=== PATIENT | female | born 1970 | race Caucasian/White ===

== ENCOUNTER 2017-01-06 18:27 | Emergency (ER) | payer BC ==
[~2017-01-06] VITALS: Ht 152.4 cm; Wt 71.2 kg
[~2017-01-06 18:27] MED LIST: BUPR-79 PO; LORA-741 PO
[2017-01-06 18:38] VITALS: TEMP 36.9; Ht 152.4 cm; Wt 71.2 kg
[2017-01-06] MEDS ORDERED: SODIUM CHLORIDE 0.9% 1000ML 1,000 ML IV STA (19:00)
--- NOTE | 2017-01-06 19:21 | DIAGNOSTIC IMAGING REPORT ---
SINGLE VIEW CHEST CLINICAL HISTORY: Change in mental status. Weakness. FINDINGS: An AP, portable, upright chest radiograph is compared to study dated 03/28/2016. The cardiomediastinal silhouette is unremarkable. The lungs and pleural spaces are clear. No pneumothorax is seen. The skeletal structures appear osteopenic. The bony thorax is grossly intact. Cholecystectomy clips are identified in the right upper quadrant. IMPRESSION: No active disease in the chest. Electronically signed by: Albert Coreas M.D. 01/06/2017 7:19 PM Dictated Date/Time: 01/06/2017 7:19 PM
[2017-01-06 19:28] VITALS: O2SAT 96
[2017-01-06 19:41] LABS: BASO % 0.2 %; BASO ABS # 0.02 K/uL (0-0.2); COMPLETE YES; EOS % 1.3 %; HEMATOCRIT 40.8 % (37-47); IG% 0.3 %; LYMPH % 20.3 %; LYMPH ABS # 2.26 K/uL (1.2-3.4); MEAN CELL VOLUME 91.9 fL (80-100); MEAN CORPUSCULAR HEMOGLOBIN 30.9 pg (25-34); MEAN CORPUSCULAR HGB CONC 33.6 g/dl (32-36); MEAN PLATELET VOLUME 8.7 fL (7.4-10.4); MONO % 6.5 %; NEUT % 71.4 %; PLATELET COUNT 302 K/uL (130-400); RED BLOOD COUNT 4.44 M/uL (4.2-5.4); WHITE BLOOD COUNT 11.12 K/uL (4.8-10.8)
[2017-01-06] MEDS ORDERED: FLUO20CA36 PO (19:45)
[2017-01-06 19:54] LABS: INR 0.9 (0.9-1.1); PROTHROMBIN TIME (PATIENT) 10.1 SECONDS (9.0-12.0)
[2017-01-06 20:05] LABS: ALT/SGPT 27 U/L (12-78); AST/SGOT 19 U/L (15-37); BLOOD UREA NITROGEN 12 mg/dl (7-18); BUN/CREATININE RATIO 14.8 (10-20); CALCIUM 8.7 mg/dl (8.5-10.1); CARBON DIOXIDE 30 mmol/L (21-32); CHLORIDE 107 mmol/L (98-107); CREATININE 0.84 mg/dl (0.60-1.20); GLUCOSE 94 mg/dl (70-99); MAGNESIUM 2.4 mg/dl (1.8-2.4); POTASSIUM 3.6 mmol/L (3.5-5.1); SODIUM 142 mmol/L (136-145)
[2017-01-06 20:15] LABS: ALKALINE PHOSPHATASE 76 U/L (45-117); PHOSPHORUS 2.5 mg/dl (2.5-4.9)
[2017-01-06] MEDS ORDERED: LORAZEPAM 1 MG TAB SL STA (20:36)
[2017-01-06 20:47] LABS: URINE APPEARANCE CLEAR (CLEAR); URINE BILIRUBIN NEG (NEG); URINE COLOR YELLOW; URINE NITRITE NEG (NEG); URINE PH 6.5 (4.5-7.5); URINE SPECIFIC GRAVITY 1.023 (1.000-1.030); UROBILINOGEN NEG (NEG)
[2017-01-06 20:48] LABS: MANUAL MICROSCOPIC REQUIRED? NO; REVIEW REQ? NO
[2017-01-06 21:12] LABS: BENZODIAZEPINE, URINE NEG (NEG); COCAINE,URINE NEG (NEG); PHENCYCLIDINE, URINE NEG (NEG)
--- NOTE | 2017-01-06 21:28 | DIAGNOSTIC IMAGING REPORT ---
CERVICAL SPINE 5 VIEWS CLINICAL HISTORY: Cervicalgia. No history of trauma. FINDINGS: AP, lateral, bilateral oblique, and odontoid views of the cervical spine are correlated with CT scan of the neck dated 07/28/2014. The skeletal structures are well mineralized. There is no radiographic evidence of fracture or subluxation. The odontoid process and lateral masses appear intact on the open mouth view. The spinolaminar line is preserved. Vertebral body height and alignment are maintained. There is straightening of cervical lordosis with mild reversal centered at C4-C5. Anterior osteophytes are seen from C5 to C7. The spinous processes appear intact. Mild degenerative disc space narrowing seen at C5-C6 and C6-C7. The remaining intervertebral disc spaces are normal. Small posterior discussed by complex is at C5-C6 and C6-C7 may contribute to mild acquired compromise of the central canal. Mild neural frontal stenosis is suggested bilaterally at C5-C6 and C6-C7 on the oblique views. Mild multilevel facet arthropathy is observed. The prevertebral soft tissues are within normal limits. Visualized apical lung parenchyma appears clear. IMPRESSION: 1. No acute bony abnormality is identified. 2. Mild spondylotic change as above, greatest at C5-C6 and C6-C7. See discussion. Electronically signed by: Albert Coreas M.D. 01/06/2017 9:27 PM Dictated Date/Time: 01/06/2017 9:25 PM
[2017-01-06 21:55] VITALS: BP 129/84; PULSE 75; O2SAT 97
--- NOTE | 2017-01-06 21:57 | EMERGENCY ROOM VISIT NOTE ---
History First contact with patient: 18:44 Chief Complaint: DIZZY Stated Complaint: DIZZY, NAUSEA Nursing Triage Summary: Pt reports for several days she has "not been feeling right in the head." Pt reports nausea, dizziness, lightheaded at times. Pt reports some neck pain in left side of head and yesterday having pain under left breast. C/o feeling tired all the time. History of Present Illness The patient is a 46 year old female who presents to the Emergency Room with multiple complaints, including but not limited to headache, neck discomfort, dizziness, shakiness, fatigue, lightheadedness, left ear pain and anxiety. The patient reports that she has had the symptoms for the past several weeks. She has an appointment on Wednesday to see her PCP for recent neck pain and headache. She denies any other recent sinus congestion, runny nose, sore throat or cough. The patient reports that her symptoms have been intermittent. She denies any chest pain, shortness of breath, nausea, vomiting, abdominal pain, diarrhea or urinary symptoms. Her biggest complaint at this time is left ear pain. She denies any tinnitus or drainage from the ear. She rates her discomfort a 4 out of 10. Review of Systems HEENT: Denies spinning dizziness, visual problems, hearing loss or tinnitus. Denies difficulty swallowing or oral lesions. PULMONARY: Denies cough, shortness of breath, sputum production or hemoptysis. CARDIOVASCULAR: Denies chest pain, palpitations, dyspnea on exertion, orthopnea or peripheral edema. GASTROINTESTINAL: Denies diarrhea, constipation, nausea, vomiting, or abdominal pain. GENITOURINARY: Denies dysuria, frequency, urgency or nocturia. NEUROLOGIC: Denies history of epilepsy, CVA, TIA or chronic headaches. MUSCULOSKELETAL: Denies history of joint tenderness/swelling. SKIN: Denies rashes or lesions. PSYCHIATRIC: History of anxiety. ENDOCRINE: Denies history of diabetes or thyroid disorders. Past Medical/Surgical History Medical Problems: (1) Cholelithiasis Nos (2) Depressive Disorder Nec (3) Excessive Menstruation (4) Mixed Hyperlipidemia (5) Tobacco Use Disorder Family History Unremarkable Social History Smoking Status: Current Every Day Smoker Alcohol Use: occasionally Drug Use: none Marital Status: single Occupation Status: employed Current/Historical Medications Scheduled Bupropion (Wellbutrin Sr), 150 MG PO BID Fluoxetine HCl (Fluoxetine HCl), 20 MG PO SS Lorazepam (Ativan), 0.5 MG PO DAILY Allergies Coded Allergies: Penicillins (Verified Allergy, Mild, 03/28/16) Physical Exam Vital Signs Date Time Temp Pulse Resp B/P Pulse Ox O2 Delivery O2 Flow Rate FiO2 01/06/17 20:37 76 20 131/81 95 Room Air 01/06/17 19:34 68 19 127/75 99 Room Air 80 127/86 85 144/80 01/06/17 19:28 96 Room Air 01/06/17 18:40 78 01/06/17 18:38 36.9 79 18 131/83 97 Room Air Physical Exam CONSTITUTIONAL: Healthy and well nourished. Alert and oriented X 3. Patient does not appear in any acute distress. PSYCHIATRIC: Mildly anxious with positive affect. HEENT: Normocephalic, atraumatic. Pupils equal, round and reactive. Bilateral ears are normal on exam with no left TM erythema, air-fluid levels or TM perforation. Nares are also clear. No scleral icterus or conjunctival injection/pallor. NECK: Full active range of motion without discomfort. No JVD or carotid bruits on auscultation. No nuchal rigidity. RESPIRATORY: Clear to auscultation bilaterally with no wheezing, crackles, rhonchi or stridor. CARDIOVASCULAR: Regular rate and rhythm with no murmurs, rubs or gallops. GASTROINTESTINAL: Bowel sounds present in all quadrants. Soft and nontender to palpation. MUSCULOSKELETAL: Full range of motion of all joints without discomfort. INTEGUMENTARY: No rash or other significant dermatologic conditions noted. HEMATOLOGIC: No ecchymosis or petechiae. NEUROLOGIC: Cranial nerves II-XII grossly intact. No focal neurologic deficits noted. No ataxia with ambulation. Negative pronator drift. Medical Decision & Procedures ER Provider Diagnostic Interpretation: My interpretation of an ECG shows a normal sinus rhythm of [address] elevation or other conduction abnormalities. T-wave inversion is noted in lead I. My interpretation of a portable chest x-ray does not show any consolidations, pneumothorax or cardiac prominence. Radiologist report is as follows: SINGLE VIEW CHEST CLINICAL HISTORY: Change in mental status. Weakness. FINDINGS: An AP, portable, upright chest radiograph is compared to study dated 03/28/2016. The cardiomediastinal silhouette is unremarkable. The lungs and pleural spaces are clear. No pneumothorax is seen. The skeletal structures appear osteopenic. The bony thorax is grossly intact. Cholecystectomy clips are identified in the right upper quadrant. IMPRESSION: No active disease in the chest. My interpretation of cervical spine x-rays shows spondylolisthetic changes of the lower cervical spine. Radiologist report is as follows: CERVICAL SPINE 5 VIEWS CLINICAL HISTORY: Cervicalgia. No history of trauma. FINDINGS: AP, lateral, bilateral oblique, and odontoid views of the cervical spine are correlated with CT scan of the neck dated 07/28/2014. The skeletal structures are well mineralized. There is no radiographic evidence of fracture or subluxation. The odontoid process and lateral masses appear intact on the open mouth view. The spinolaminar line is preserved. Vertebral body height and alignment are maintained. There is straightening of cervical lordosis with mild reversal centered at C4-C5. Anterior osteophytes are seen from C5 to C7. The spinous processes appear intact. Mild degenerative disc space narrowing seen at C5-C6 and C6-C7. The remaining intervertebral disc spaces are normal. Small posterior discussed by complex is at C5-C6 and C6-C7 may contribute to mild acquired compromise of the central canal. Mild neural frontal stenosis is suggested bilaterally at C5-C6 and C6-C7 on the oblique views. Mild multilevel facet arthropathy is observed. The prevertebral soft tissues are within normal limits. Visualized apical lung parenchyma appears clear. IMPRESSION: 1. No acute bony abnormality is identified. 2. Mild spondylotic change as above, greatest at C5-C6 and C6-C7. See discussion. Laboratory Results 01/06/17 19:30 Red Blood Count 4.44, Mean Corpuscular Volume 91.9, Mean Corpuscular Hemoglobin 30.9, Mean Corpuscular Hemoglobin Concent 33.6, Mean Platelet Volume 8.7, Neutrophils (%) (Auto) 71.4, Lymphocytes (%) (Auto) 20.3, Monocytes (%) (Auto) 6.5, Eosinophils (%) (Auto) 1.3, Basophils (%) (Auto) 0.2, Neutrophils # (Auto) 7.94, Lymphocytes # (Auto) 2.26, Monocytes # (Auto) 0.72, Eosinophils # (Auto) 0.15, Basophils # (Auto) 0.02 01/06/17 19:30 Test 01/06/17 19:30 01/06/17 20:35 White Blood Count 11.12 K/uL (4.8-10.8) Red Blood Count 4.44 M/uL (4.2-5.4) Hemoglobin 13.7 g/dL (12.0-16.0) Hematocrit 40.8 % (37-47) Mean Corpuscular Volume 91.9 fL (80-100) Mean Corpuscular Hemoglobin 30.9 pg (25-34) Mean Corpuscular Hemoglobin Concent 33.6 g/dl (32-36) Platelet Count 302 K/uL (130-400) Mean Platelet Volume 8.7 fL (7.4-10.4) Neutrophils (%) (Auto) 71.4 % Lymphocytes (%) (Auto) 20.3 % Monocytes (%) (Auto) 6.5 % Eosinophils (%) (Auto) 1.3 % Basophils (%) (Auto) 0.2 % Neutrophils # (Auto) 7.94 K/uL (1.4-6.5) Lymphocytes # (Auto) 2.26 K/uL (1.2-3.4) Monocytes # (Auto) 0.72 K/uL (0.11-0.59) Eosinophils # (Auto) 0.15 K/uL (0-0.5) Basophils # (Auto) 0.02 K/uL (0-0.2) RDW Standard Deviation 43.0 fL (36.4-46.3) RDW Coefficient of Variation 12.7 % (11.5-14.5) Immature Granulocyte % (Auto) 0.3 % Immature Granulocyte # (Auto) 0.03 K/uL (0.00-0.02) Prothrombin Time 10.1 SECONDS (9.0-12.0) Prothromb Time International Ratio 0.9 (0.9-1.1) Activated Partial Thromboplast Time 26.4 SECONDS (21.0-31.0) Partial Thromboplastin Ratio 1.0 D-Dimer 280 ug/L FEU (0-500) Anion Gap 5.0 mmol/L (3-11) Est Creatinine Clear Calc Drug Dose 73.7 ml/min Estimated GFR () 96.6 Estimated GFR (Non- 83.3 BUN/Creatinine Ratio 14.8 (10-20) Calcium Level 8.7 mg/dl (8.5-10.1) Phosphorus Level 2.5 mg/dl (2.5-4.9) Magnesium Level 2.4 mg/dl (1.8-2.4) Total Bilirubin 0.1 mg/dl (0.2-1) Direct Bilirubin < 0.1 mg/dl (0-0.2) Aspartate Amino Transf (AST/SGOT) 19 U/L (15-37) Alanine Aminotransferase (ALT/SGPT) 27 U/L (12-78) Alkaline Phosphatase 76 U/L (45-117) Total Creatine Kinase 78 U/L (26-192) Total Protein 7.3 gm/dl (6.4-8.2) Albumin 3.5 gm/dl (3.4-5.0) Thyroid Stimulating Hormone (TSH) 1.950 uIu/ml (0.300-4.500) Urine Color YELLOW Urine Appearance CLEAR (CLEAR) Urine pH 6.5 (4.5-7.5) Urine Specific [place] 1.023 (1.000-1.030) Urine Protein NEG (NEG) Urine Glucose (UA) NEG (NEG) Urine Ketones NEG (NEG) Urine Occult Blood NEG (NEG) Urine Nitrite NEG (NEG) Urine Bilirubin NEG (NEG) Urine Urobilinogen NEG (NEG) Urine Leukocyte Esterase NEG (NEG) Urine Opiates Screen NEG (NEG) Urine Methadone, Qualitative NEG (NEG) Urine Barbiturates NEG (NEG) Urine Phencyclidine (PCP) Level NEG (NEG) Ur Amphetamine/Methamphetamine NEG (NEG) MDMA (Ecstasy) Screen POS (NEG) Urine Benzodiazepines Screen NEG (NEG) Urine Cocaine Metabolite NEG (NEG) Urine Marijuana (THC) NEG (NEG) The above labs were reviewed and were grossly normal. Medications Administered Medications (Trade) Dose Ordered Sig/[place] Route Start Time Stop Time Status Last Admin Dose Admin Sodium Chloride (Nss 1000ml) 1,000 ml @ 999 mls/hr Q1H1M STAT IV 01/06/17 19:00 01/06/17 20:00 DC 01/06/17 19:31 999 MLS/HR Lorazepam (Ativan Tab) 1 mg NOW STAT SL 01/06/17 20:36 01/06/17 20:37 DC 01/06/17 20:43 1 MG ED Course Patient history and physical exam were performed. Nurse's notes were reviewed. Vital signs were reviewed and were normal. IV access was established, and labs were drawn. The patient was hydrated with a liter normal saline. ECG and portable chest x-ray were normal. Review of labs shows no significant findings. A cervical spine x-rays shows spondylolisthetic changes of the lower cervical spine. While in the emergency department, the patient was requesting some lorazepam as she usually takes this at home for anxiety. The patient was administered Ativan 1 mg sublingual. I did discuss normal workup findings today. I did discuss her cervical spine x- rays, and indicated that she may require additional workup/management with her family doctor. The patient was given additional verbal instructions for care of her cervical spine. She was encouraged to alternate ibuprofen and Tylenol as needed for pain. She is welcome to return for any progressively worsening symptoms of concern. The patient voiced understanding of all discharge instructions, was happy with plan of care, and rated her overall discomfort a 3 out of 10 at the time of discharge. Medical Decision I suspect that most of her problems is secondary to cervicogenic etiology. This certainly does not explain all of her symptoms, but the patient seemed to focus more on neck pain, headache and left ear discomfort on today's exam. She also has quite a bit of anxiety, answering may have some overriding anxiety issues. At this point, I do not feel that an emergent MRI is warranted. Impression Primary Impression: Neck pain Additional Impressions: Dizziness Otalgia, left ear Departure Information Referrals Lucia Alas M.D. (PCP) Patient Instructions My [facility] Problem Qualifiers
== END 2017-01-06 22:00 | disposition home or self-care (01) ==
LOC: EDBD 18:27 → C.EDB 18:28
DX: R42 Dizziness and giddiness (principal); M54.2 Cervicalgia; H92.02 Otalgia, left ear; F41.9 Anxiety disorder, unspecified; F32.9 Major depressive disorder, single episode, unspecified; F17.210 Nicotine dependence, cigarettes, uncomplicated; E78.2 Mixed hyperlipidemia; Z79.899 Other long term (current) drug therapy

== ENCOUNTER → 2017-05-28 | Outpatient (CLI) | payer BC ==
[~2017-05-28] MED LIST changes: +FLUO20CA36 PO
== END | disposition home or self-care (01) ==
LOC: C.PAPS 14:13
PROVIDERS: ATTEND Physician Assistant
DX: Z01.419 Encounter for gynecological examination (general) (routine) without abnormal findings (principal)

== ENCOUNTER 2017-10-08 09:20 | Emergency (ER) | payer BC, OTHER ==
[~2017-10-08] VITALS: Ht 152.4 cm; Wt 66.0 kg
[2017-10-08 09:24] VITALS: TEMP 36.8; Ht 152.4 cm; Wt 66.0 kg
--- NOTE | 2017-10-08 09:48 | EMERGENCY ROOM VISIT NOTE ---
History Report prepared by Hood: Jared Rao Under the Supervision of: Dr. Mahad Casanova M.D. First contact with patient: 09:40 Chief Complaint: MENTAL HEALTH EVALUATION Stated Complaint: PANIC,ANXIETY ATTACKS,HEART RACING,CAN'T BREATHE History of Present Illness The patient is a 47 year old female who presents to the Emergency Room for evaluation of a panic attack. Notes long history of anxiety and panic attacks. She has been on multiple medications over the years attempting to control this. They come in waves every so many months. She was started on Buspar due to increasing anxiety over last 3 weeks. Using Ativan periodically a few weeks ago with good success but stopped due to PCP cautioning her about it. She Follows with PCP and a therapist, no psychitatric. She denies suicidal/ homicidal ideation. Anxiety worse last 2 days due to concerns with child adolescent psychiatrist and relationship. Denies drug, etoh use. She currently is feeling better. Periodic mild back pain otherwise no other medical issues. Denies other complaints. No medications prior to arrival. Rest and relax makes symptoms better. Thinking about stressors makes things worse. Source of History: patient Onset: 1 day ago Position: other (global) Timing: constant Associated Symptoms: + back pain, No abdominal pain, No rash Note: Patient denies homicidal and suicidal ideation. Review of Systems See HPI for pertinent positives & negatives. A total of 10 systems reviewed and were otherwise negative. Past Medical & Surgical Medical Problems: (1) Cholelithiasis Nos (2) Depressive Disorder Nec (3) Excessive Menstruation (4) Mixed Hyperlipidemia (5) Tobacco Use Disorder Social History Smoking Status: Current Every Day Smoker Alcohol Use: occasionally Drug Use: none Marital Status: single Occupation Status: employed Current/Historical Medications Scheduled Ascorbic Acid (Vitamin C), 1 TAB PO DAILY Buspirone Hcl (Buspar), 7.5 MG PO BID Ferrous Sulfate (Iron), 1 TAB PO DAILY Lorazepam (Ativan), 0.5 MG PO DAILY [Albuterol Inhaler], 2 PUFFS INH QID [Fluticasone Propion], 2 SPRAYS INH DAILY Allergies Coded Allergies: Penicillins (Verified Allergy, Mild, 10/08/17) Physical Exam Vital Signs Date Time Temp Pulse Resp B/P (MAP) Pulse Ox O2 Delivery O2 Flow Rate FiO2 10/08/17 11:24 62 16 112/64 98 Room Air 10/08/17 09:24 36.8 74 20 140/84 99 Room Air Physical Exam GENERAL: Patient is anxious appearing and in no acute distress. Patient denies suicidal and homicidal ideation. Periodically ringing hands. HEENT: No acute trauma, normocephalic atraumatic, mucous membranes moist, no nasal congestion, no scleral icterus. NECK: No stridor, no adenopathy, no meningismus, trachea is midline. LUNGS: No dyspnea. Clear to auscultation and equal bilaterally. No wheeze, no rhonchi. HEART: Regular rate and rhythm. No murmurs, rubs, gallops appreciated. ABDOMEN: Soft, nontender, bowel sounds positive, no masses appreciated, no peritonitis. BACK: No midline tenderness, no CVA tenderness EXTREMITIES: Normal motion all extremities, no cyanosis, no edema. NEUROLOGIC: Alert and oriented, no acute motor or sensory deficits, no focal weakness, cranial nerves grossly intact. SKIN: No rash, no jaundice, no diaphoresis. Medical Decision & Procedures Laboratory Results 10/08/17 10:05 Red Blood Count 4.59, Mean Corpuscular Volume 91.5, Mean Corpuscular Hemoglobin 31.6, Mean Corpuscular Hemoglobin Concent 34.5, Mean Platelet Volume 9.0, Neutrophils (%) (Auto) 68.9, Lymphocytes (%) (Auto) 24.5, Monocytes (%) (Auto) 5.4, Eosinophils (%) (Auto) 0.8, Basophils (%) (Auto) 0.2, Neutrophils # (Auto) 5.88, Lymphocytes # (Auto) 2.09, Monocytes # (Auto) 0.46, Eosinophils # (Auto) 0.07, Basophils # (Auto) 0.02 10/08/17 10:05 Test 10/08/17 09:55 10/08/17 10:05 Urine Color YELLOW Urine Appearance CLEAR (CLEAR) Urine pH 8.0 (4.5-7.5) Urine Specific [place] 1.010 (1.000-1.030) Urine Protein NEG (NEG) Urine Glucose (UA) NEG (NEG) Urine Ketones NEG (NEG) Urine Occult Blood 3+ (NEG) Urine Nitrite NEG (NEG) Urine Bilirubin NEG (NEG) Urine Urobilinogen NEG (NEG) Urine Leukocyte Esterase TRACE (NEG) Urine WBC (Auto) 5-10 /hpf (0-5) Urine RBC (Auto) >30 /hpf (0-4) Urine Hyaline Casts (Auto) 0 /lpf (0-5) Urine Epithelial Cells (Auto) 10-20 /lpf (0-5) Urine Bacteria (Auto) NEG (NEG) Urine Test NEG (NEG) White Blood Count 8.54 K/uL (4.8-10.8) Red Blood Count 4.59 M/uL (4.2-5.4) Hemoglobin 14.5 g/dL (12.0-16.0) Hematocrit 42.0 % (37-47) Mean Corpuscular Volume 91.5 fL (80-100) Mean Corpuscular Hemoglobin 31.6 pg (25-34) Mean Corpuscular Hemoglobin Concent 34.5 g/dl (32-36) Platelet Count 282 K/uL (130-400) Mean Platelet Volume 9.0 fL (7.4-10.4) Neutrophils (%) (Auto) 68.9 % Lymphocytes (%) (Auto) 24.5 % Monocytes (%) (Auto) 5.4 % Eosinophils (%) (Auto) 0.8 % Basophils (%) (Auto) 0.2 % Neutrophils # (Auto) 5.88 K/uL (1.4-6.5) Lymphocytes # (Auto) 2.09 K/uL (1.2-3.4) Monocytes # (Auto) 0.46 K/uL (0.11-0.59) Eosinophils # (Auto) 0.07 K/uL (0-0.5) Basophils # (Auto) 0.02 K/uL (0-0.2) RDW Standard Deviation 41.8 fL (36.4-46.3) RDW Coefficient of Variation 12.5 % (11.5-14.5) Immature Granulocyte % (Auto) 0.2 % Immature Granulocyte # (Auto) 0.02 K/uL (0.00-0.02) Anion Gap 6.0 mmol/L (3-11) Est Creatinine Clear Calc Drug Dose 83.0 ml/min Estimated GFR () 117.6 Estimated GFR (Non- 101.4 BUN/Creatinine Ratio 12.4 (10-20) Calcium Level 8.8 mg/dl (8.5-10.1) Total Bilirubin 0.3 mg/dl (0.2-1) Aspartate Amino Transf (AST/SGOT) 14 U/L (15-37) Alanine Aminotransferase (ALT/SGPT) 20 U/L (12-78) Alkaline Phosphatase 62 U/L (45-117) Total Protein 7.3 gm/dl (6.4-8.2) Albumin 3.5 gm/dl (3.4-5.0) Globulin 3.8 gm/dl (2.5-4.0) Albumin/Globulin Ratio 0.9 (0.9-2) Thyroid Stimulating Hormone (TSH) 1.470 uIu/ml (0.300-4.500) Laboratory results as reviewed by me. ED Course 0940: The patient was evaluated in room A5. A complete history and physical exam was performed. 1135: I checked on the patient and she feels better and would like to go home. She will speak with the protective services case worker and will be referred to a psychiatrist. 1140: Reevaluated the patient. Discussed results and discharge instructions: She verbalized understanding and agreement. The patient is ready for discharge. Medical Decision Differential: Mood Disorder, Overdose, Infectious, Electrolyte Abnormality, Cardiac, Hepatic, Endocrine, Toxicologic, Neurologic, amongst other pathologies entertained. Pleasant 47 yr old female with panic disorder noting several episodes last few days despite Buspar use. Did stop using Ativan she had been on a few weeks ago. No suicidal/homicidal ideation. She is stable, no distress, cooperative and exhibits no evidence of risk to self. She is anxious about getting anxious. Mental Health case supervisor discussed with her and plan will be outpatient follow up. Patient does not feel that she is a risk to herself, nor does she feel she needs inpatient treatment. She will use Ativan PRN at home with limited use only in absolutely necessary situations. Aware of when to RTED /911. Medication Reconcilliation Current Medication List: was personally reviewed by me Blood Pressure Screening Patient's blood pressure: Elevated blood pressure Blood pressure disposition: Elevated BP felt to be situational Impression Primary Impression: Panic attacks Scribe Attestation The scribe's documentation has been prepared under my direction and personally reviewed by me in its entirety. I confirm that the note above accurately reflects all work, treatment, procedures, and medical decision making performed by me. Departure Information Dispostion Home / Self-Care Referrals Lucia Alas M.D. (PCP) Patient Instructions ED Panic Attack, My [facility] Additional Instructions It is reasonable to use Ativan when absolutely necessary to help with anxiety attacks. However, these medications may cause drowsiness and should not be used with other sedative medications. Do not drive, drink alcohol, perform dangerous activities, nor make important decisions after taking these medications. skilled nursing use or inappropriate use may lead to addiction. We are always here to help. If at any time you feel you may be at risk of harming yourself or others, call 911 or return immediately.
[2017-10-08 10:13] LABS: BASO % 0.2 %; BASO ABS # 0.02 K/uL (0-0.2); EOS % 0.8 %; EOS ABS # 0.07 K/uL (0-0.5); HEMOGLOBIN 14.5 g/dL (12.0-16.0); IG# 0.02 K/uL (0.00-0.02); LYMPH % 24.5 %; LYMPH ABS # 2.09 K/uL (1.2-3.4); MEAN CELL VOLUME 91.5 fL (80-100); MEAN CORPUSCULAR HEMOGLOBIN 31.6 pg (25-34); MEAN CORPUSCULAR HGB CONC 34.5 g/dl (32-36); MONO % 5.4 %; MONO ABS # 0.46 K/uL (0.11-0.59); NEUT % 68.9 %; NEUT ABS # 5.88 K/uL (1.4-6.5); PLATELET COUNT 282 K/uL (130-400); RED CELL DISTRIBUTION WIDTH CV 12.5 % (11.5-14.5); RED CELL DISTRIBUTION WIDTH SD 41.8 fL (36.4-46.3); WHITE BLOOD COUNT 8.54 K/uL (4.8-10.8)
[2017-10-08 10:30] LABS: ALBUMIN 3.5 gm/dl (3.4-5.0); CALCIUM 8.8 mg/dl (8.5-10.1); CREATININE 0.71 mg/dl (0.60-1.20); POTASSIUM 3.6 mmol/L (3.5-5.1)
[2017-10-08 10:40] LABS: TOTAL PROTEIN 7.3 gm/dl (6.4-8.2)
[2017-10-08] MEDS ORDERED: FERR1TAB23 PO (11:08)
[2017-10-08] MEDS ORDERED: ASCO500C3 PO (11:08)
[2017-10-08] MEDS ORDERED: FLUTICASONE PROPION INH (11:08)
[2017-10-08] MEDS ORDERED: BUSP15TA70 PO (11:08)
[2017-10-08] MEDS ORDERED: ALBUTEROL INHALER INH (11:08)
[2017-10-08 11:24] VITALS: BP 112/64; PULSE 62; O2SAT 98
== END 2017-10-08 11:45 | disposition home or self-care (01) ==
LOC: C.EDB 09:21 → C.EDA 11:45
DX: F41.0 Panic disorder [episodic paroxysmal anxiety] (principal); F32.9 Major depressive disorder, single episode, unspecified; F17.200 Nicotine dependence, unspecified, uncomplicated

== ENCOUNTER 2017-10-12 09:20 | Emergency (ER) | payer OTHER ==
[~2017-10-12] VITALS: Ht 152.4 cm; Wt 66.2 kg
[~2017-10-12 09:20] MED LIST changes: +ALBUTEROL INHALER INH; +ASCO500C3 PO; -BUPR-79 PO; +BUSP15TA70 PO; +FERR1TAB23 PO; -FLUO20CA36 PO; +FLUTICASONE PROPION INH
[2017-10-12 09:29] VITALS: TEMP 36.8; Ht 152.4 cm; Wt 66.2 kg
[2017-10-12 10:09] LABS: BASO % 0.2 %; BASO ABS # 0.02 K/uL (0-0.2); EOS % 1.2 %; EOS ABS # 0.11 K/uL (0-0.5); HEMATOCRIT 46.3 % (37-47); HEMOGLOBIN 16.2 g/dL (12.0-16.0); IG# 0.03 K/uL (0.00-0.02); LYMPH % 25.2 %; LYMPH ABS # 2.31 K/uL (1.2-3.4); MEAN CELL VOLUME 91.3 fL (80-100); MEAN PLATELET VOLUME 9.2 fL (7.4-10.4); MONO % 5.3 %; MONO ABS # 0.49 K/uL (0.11-0.59); NEUT % 67.8 %; NEUT ABS # 6.21 K/uL (1.4-6.5); PLATELET COUNT 300 K/uL (130-400); RED CELL DISTRIBUTION WIDTH CV 12.5 % (11.5-14.5); RED CELL DISTRIBUTION WIDTH SD 41.9 fL (36.4-46.3); WHITE BLOOD COUNT 9.17 K/uL (4.8-10.8)
[2017-10-12 10:30] LABS: ALBUMIN 4.1 gm/dl (3.4-5.0); CALCIUM 9.3 mg/dl (8.5-10.1); CREATININE 0.83 mg/dl (0.60-1.20); POTASSIUM 3.7 mmol/L (3.5-5.1)
[2017-10-12 10:41] LABS: TOTAL PROTEIN 8.5 gm/dl (6.4-8.2)
[2017-10-12] MEDS ORDERED: FLUT1SPR12 NAE (10:43)
[2017-10-12] MEDS ORDERED: VNTHFA/IN INH (10:43)
[2017-10-12] MEDS ORDERED: LORAZEPAM 0.5 MG TAB SL STA (12:16)
[2017-10-12] MEDS ORDERED: hydrOXYzine HCL 25 MG TAB PO STA (12:47)
[2017-10-12] MEDS ORDERED: HYDR1CAP85 PO (14:33)
--- NOTE | 2017-10-12 14:42 | EMERGENCY ROOM VISIT NOTE ---
History Report prepared by Hood: Eagle Britton Under the Supervision of: Dr. Palmer Carmona D.O. First contact with patient: 09:40 Chief Complaint: ANXIETY Stated Complaint: ANXIETY CONSTANT, DEPRESSION History of Present Illness The patient is a 47 year old female who presents to the Emergency Room with complaints of worsening anxiety for the past 5 days. The patient notes that she had a panic attack 5 days ago, and she has been having the anxiety since then. The patient states that she has been trying to eat and drink, and last night she was unable to sleep, and she has not been able to go to work for the past 5 days as well. She additionally notes that 4 nights ago she was trying to fall asleep and started worrying about money. She states that she then thought "I could hurt some to get money" though she has not thought that since. The patient reports that she has had similar episodes of anxiety a year and a half ago, and she has been diagnosed with generalized anxiety, though it has not been this bad. The patient states that she has felt shaky, "flutters" in her chest and stomach, heart racing, hands sweating, and tingling in her hands, and she states that all of these symptoms are usual for her anxiety. The patient states that during her panic attack she became light headed and dizzy. She denies any drugs or alcohol use, and she states that she smokes. The patient reports that she was put on Buspar three weeks ago by her PCP. Pt denies headache, change in vision, fevers, vomiting, diarrhea, pain with urination, and melena. Source of History: patient Onset: 5 days ago Position: other (global) Quality: other (anxiety) Timing: worsening Associated Symptoms: No headache Note: Associated symptoms: felt shaky, "flutters" in her chest and stomach, heart racing, hands sweating, and tingling in her hands Review of Systems See HPI for pertinent positives & negatives. A total of 10 systems reviewed and were otherwise negative. Past Medical & Surgical Medical Problems: (1) Cholelithiasis Nos (2) Depressive Disorder Nec (3) Excessive Menstruation (4) Mixed Hyperlipidemia (5) Tobacco Use Disorder Social History Smoking Status: Current Every Day Smoker Alcohol Use: occasionally Drug Use: none Marital Status: single Occupation Status: employed Current/Historical Medications Scheduled Albuterol Hfa (Ventolin Hfa), 2-4 PUFFS INH Q6H Ascorbic Acid (Vitamin C), 1 TAB PO DAILY Buspirone Hcl (Buspar), 7.5 MG PO BID Ferrous Sulfate (Iron), 1 TAB PO DAILY Fluticasone Propionate (Nasal) (Flonase Allergy Relief Ch), 2 SPRAYS MACY DAILY Hydroxyzine Pamoate (Vistaril), 25 MG PO BID Lorazepam (Ativan), 0.5 MG PO DAILY Allergies Coded Allergies: Penicillins (Verified Allergy, Mild, 10/12/17) Physical Exam Vital Signs Date Time Temp Pulse Resp B/P (MAP) Pulse Ox O2 Delivery O2 Flow Rate FiO2 10/12/17 14:49 76 16 116/56 96 10/12/17 11:30 63 16 114/42 97 Room Air 10/12/17 09:29 36.8 80 18 132/80 99 Room Air Physical Exam GENERAL: Sitting up in bed, anxious, no acute distress EYE EXAM: normal conjunctiva. OROPHARYNX: no exudate, no erythema, lips, buccal mucosa, and tongue normal and mucous membranes are moist NECK: supple, no nuchal rigidity, no adenopathy, non-tender LUNGS: Clear to auscultation. Normal chest wall mechanics HEART: no murmurs, S1 normal and S2 normal ABDOMEN: abdomen soft, non-tender, normo-active bowel sounds, no masses, no rebound or guarding. BACK: Back is symmetrical on inspection and there is no deformity, no midline tenderness, no CVA tenderness. SKIN: no rashes and no bruising UPPER EXTREMITIES: upper extremities are grossly normal. LOWER EXTREMITIES: No pitting edema. NEURO EXAM: Normal sensorium, cranial nerves II-XII grossly intact, normal speech, no gross weakness of arms, no gross weakness of legs. PSYCH: admits to depression. Denies suicidal and homicidal ideations. Medical Decision & Procedures Laboratory Results 10/12/17 09:52 Red Blood Count 5.07, Mean Corpuscular Volume 91.3, Mean Corpuscular Hemoglobin 32.0, Mean Corpuscular Hemoglobin Concent 35.0, Mean Platelet Volume 9.2, Neutrophils (%) (Auto) 67.8, Lymphocytes (%) (Auto) 25.2, Monocytes (%) (Auto) 5.3, Eosinophils (%) (Auto) 1.2, Basophils (%) (Auto) 0.2, Neutrophils # (Auto) 6.21, Lymphocytes # (Auto) 2.31, Monocytes # (Auto) 0.49, Eosinophils # (Auto) 0.11, Basophils # (Auto) 0.02 10/12/17 09:52 Test 10/12/17 09:52 10/12/17 10:30 White Blood Count 9.17 K/uL (4.8-10.8) Red Blood Count 5.07 M/uL (4.2-5.4) Hemoglobin 16.2 g/dL (12.0-16.0) Hematocrit 46.3 % (37-47) Mean Corpuscular Volume 91.3 fL (80-100) Mean Corpuscular Hemoglobin 32.0 pg (25-34) Mean Corpuscular Hemoglobin Concent 35.0 g/dl (32-36) Platelet Count 300 K/uL (130-400) Mean Platelet Volume 9.2 fL (7.4-10.4) Neutrophils (%) (Auto) 67.8 % Lymphocytes (%) (Auto) 25.2 % Monocytes (%) (Auto) 5.3 % Eosinophils (%) (Auto) 1.2 % Basophils (%) (Auto) 0.2 % Neutrophils # (Auto) 6.21 K/uL (1.4-6.5) Lymphocytes # (Auto) 2.31 K/uL (1.2-3.4) Monocytes # (Auto) 0.49 K/uL (0.11-0.59) Eosinophils # (Auto) 0.11 K/uL (0-0.5) Basophils # (Auto) 0.02 K/uL (0-0.2) RDW Standard Deviation 41.9 fL (36.4-46.3) RDW Coefficient of Variation 12.5 % (11.5-14.5) Immature Granulocyte % (Auto) 0.3 % Immature Granulocyte # (Auto) 0.03 K/uL (0.00-0.02) Anion Gap 5.0 mmol/L (3-11) Est Creatinine Clear Calc Drug Dose 71.1 ml/min Estimated GFR () 97.3 Estimated GFR (Non- 84.0 BUN/Creatinine Ratio 15.3 (10-20) Calcium Level 9.3 mg/dl (8.5-10.1) Total Bilirubin 0.6 mg/dl (0.2-1) Direct Bilirubin 0.1 mg/dl (0-0.2) Aspartate Amino Transf (AST/SGOT) 17 U/L (15-37) Alanine Aminotransferase (ALT/SGPT) 25 U/L (12-78) Alkaline Phosphatase 76 U/L (45-117) Total Protein 8.5 gm/dl (6.4-8.2) Albumin 4.1 gm/dl (3.4-5.0) Thyroid Stimulating Hormone (TSH) 1.460 uIu/ml (0.300-4.500) Ethyl Alcohol mg/dL < 3.0 mg/dl (0-3) Urine Color YELLOW Urine Appearance CLEAR (CLEAR) Urine pH 7.0 (4.5-7.5) Urine Specific [place] 1.012 (1.000-1.030) Urine Protein NEG (NEG) Urine Glucose (UA) NEG (NEG) Urine Ketones NEG (NEG) Urine Occult Blood NEG (NEG) Urine Nitrite NEG (NEG) Urine Bilirubin NEG (NEG) Urine Urobilinogen NEG (NEG) Urine Leukocyte Esterase NEG (NEG) Urine Opiates Screen NEG (NEG) Urine Methadone, Qualitative NEG (NEG) Urine Barbiturates NEG (NEG) Urine Phencyclidine (PCP) Level NEG (NEG) Ur Amphetamine/Methamphetamine NEG (NEG) MDMA (Ecstasy) Screen NEG (NEG) Urine Benzodiazepines Screen NEG (NEG) Urine Cocaine Metabolite NEG (NEG) Urine Marijuana (THC) NEG (NEG) Laboratory results per my review. Medications Administered Medications (Trade) Dose Ordered Sig/Kodi Route Start Time Stop Time Status Last Admin Dose Admin Hydroxyzine HCl (Vistaril Tab) 25 mg NOW STAT PO 10/12/17 12:47 10/12/17 12:48 DC 10/12/17 13:12 25 MG ED Course ED COURSE: Vital signs were reviewed and showed normal vitals The patients medical record was reviewed The above diagnostic studies were performed and reviewed. ED treatments and interventions as stated above. 0947: The patient was evaluated in room A5. A complete history and physical examination was performed. 1247: Vistaril 25mg PO 1427: The psych casework supervisor, Fe, has evaluated the patient and states that she can go home. 1434: Upon reevaluation, the patient is doing well.I discussed my findings with the patient and she understands and agrees with the treatment plan. Based on the patients age, coexisting illnesses, exam and lab findings the decision to treat as an outpatient was made. The patient remained stable while under my care. The patient appeared well at the time of discharge. Medical Decision Differential diagnosis: Etiologies such as mood disorder, infection, hypoglycemia, electrolyte abnormalities, cardiac sources, intracerebral event, toxicologic, neurologic, as well as others were entertained. Patient is a 47-year-old female presents to the ER for depression associated with anxiety. She notes she has been getting panic attacks intermittently over the past several days. She feels her heart racing and tingling in her hands. Patient denies any suicidal or homicidal ideations. She denies any auditory or visual hallucinations. Denies any chest pain or shortness of breath at this time. CBC along with BMP, LFTs, bilirubin, UA and alcohol were negative. Patient was evaluated by Fe. I did reevaluate her. We both agreed that she is not a danger to self. She tried some Vistaril and this did help improve her symptoms. She was discharged to follow-up with her PCP as an outpatient. She will return if any worsening of her symptoms recur. Discussed with Pt concerning signs and symptoms to watch out for. Pt was instructed to follow up with their PCP and discussed with the patient their option to return to the ED at anytime for persistent or worsening symptoms. The appropriate anticipatory guidance and out-patient management, including indications for return to the emergency department, were explained at length to the patient and understood. Medication Reconcilliation Current Medication List: was personally reviewed by me Blood Pressure Screening Patient's blood pressure: Normal blood pressure Impression Primary Impression: Mood disorder Additional Impression: Anxiety Scribe Attestation The scribe's documentation has been prepared under my direction and personally reviewed by me in its entirety. I confirm that the note above accurately reflects all work, treatment, procedures, and medical decision making performed by me. Departure Information Dispostion Home / Self-Care Prescriptions Hydroxyzine Pamoate (VISTARIL) 25 Mg Cap 25 MG PO BID for Anxiety, #20 CAP Prov: Palmer Carmona, DO 10/12/17 Referrals Lucia Alas M.D. (PCP) Forms HOME CARE DOCUMENTATION FORM, IMPORTANT VISIT INFORMATION Patient Instructions My [facility] Additional Instructions Please follow up with your primary care doctor with in the next 24 hours. Any worsening of your symptoms, please return to the ED immediately. This includes any fevers greater than 100.4, worsening pain, chest pain, shortness breath, persistent nausea, vomiting, unable to eat or drink, or any other concerning signs or symptoms from your standpoint. Problem Qualifiers
[2017-10-12 14:49] VITALS: BP 116/56; PULSE 76; O2SAT 96
== END 2017-10-12 14:49 | disposition home or self-care (01) ==
LOC: C.EDB 09:22 → C.EDA 14:49
DX: F39 Unspecified mood [affective] disorder (principal); F41.9 Anxiety disorder, unspecified; F32.9 Major depressive disorder, single episode, unspecified; E78.2 Mixed hyperlipidemia; F17.200 Nicotine dependence, unspecified, uncomplicated

== ENCOUNTER 2017-10-25 10:15 | Emergency (ER) | payer OTHER ==
[~2017-10-25] VITALS: Ht 162.6 cm; Wt 65.0 kg
[~2017-10-25 10:15] MED LIST changes: -ALBUTEROL INHALER INH; +FLUT1SPR12 NAE; -FLUTICASONE PROPION INH; +VNTHFA/IN INH
[2017-10-25 10:22] VITALS: TEMP 36.5; Ht 162.6 cm; Wt 65.0 kg
[2017-10-25] MEDS ORDERED: FLUO10CA48 PO (10:45)
[2017-10-25] MEDS ORDERED: LORAZEPAM 0.5 MG TAB SL STA (10:59)
[2017-10-25 12:22] LABS: BASO % 0.3 %; BASO ABS # 0.03 K/uL (0-0.2); EOS % 0.3 %; EOS ABS # 0.03 K/uL (0-0.5); HEMATOCRIT 44.2 % (37-47); HEMOGLOBIN 15.8 g/dL (12.0-16.0); IG# 0.03 K/uL (0.00-0.02); LYMPH % 19.7 %; MEAN CELL VOLUME 89.8 fL (80-100); MEAN CORPUSCULAR HEMOGLOBIN 32.1 pg (25-34); MEAN CORPUSCULAR HGB CONC 35.7 g/dl (32-36); MEAN PLATELET VOLUME 9.3 fL (7.4-10.4); MONO % 5.1 %; MONO ABS # 0.49 K/uL (0.11-0.59); NEUT % 74.3 %; NEUT ABS # 7.18 K/uL (1.4-6.5); PLATELET COUNT 280 K/uL (130-400); RED CELL DISTRIBUTION WIDTH CV 12.3 % (11.5-14.5); RED CELL DISTRIBUTION WIDTH SD 40.1 fL (36.4-46.3); WHITE BLOOD COUNT 9.66 K/uL (4.8-10.8)
[2017-10-25] MEDS ORDERED: LORAZEPAM 1 MG TAB SL STA (12:36)
[2017-10-25 12:46] LABS: ALBUMIN 3.7 gm/dl (3.4-5.0); CREATININE 0.66 mg/dl (0.60-1.20); POTASSIUM 3.7 mmol/L (3.5-5.1)
[2017-10-25 12:57] LABS: TOTAL PROTEIN 7.5 gm/dl (6.4-8.2)
[2017-10-25 15:40] VITALS: BP 115/76; PULSE 75; O2SAT 98
--- NOTE | 2017-10-25 18:26 | EMERGENCY ROOM VISIT NOTE ---
History Report prepared by Hood: Hanane Rivera Under the Supervision of: Dr. Riaz Das M.D. First contact with patient: 10:37 Chief Complaint: ANXIETY Stated Complaint: ANXIETY History of Present Illness The patient is a 47 year old female who presents to the Emergency Room with complaints of worsening anxiety beginning last night. She reports she was taking BuSpar for the past month, but she was extremely shaky. 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 The patient notes that she is very scared of getting suicidal thoughts because she has been very depressed like this lately. She also reports she feels very weak and when she gets stressed out, the pain and stress settles in her neck. Pt denies LOC, headache, fevers, chills, diaphoresis, visual changes, chest pain, breathing difficulties, nausea, vomiting, abdominal pain, back pain, melena, hematochezia , urinary symptoms, numbness, lymphadenopathy, rash, or other complaints. 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 A total of ten systems were reviewed and were otherwise negative. Past Medical & Surgical Medical Problems: (1) Cholelithiasis Nos (2) Dental abscess (3) Depressive Disorder Nec (4) Excessive Menstruation (5) Generalized anxiety disorder (6) Mild recurrent major depression (7) Mixed Hyperlipidemia (8) Tobacco Use Disorder Surgical Problems: (1) S/P section (2) S/P cholecystectomy (3) S/P tubal ligation (4) Bar[place] teeth extracted Family History No pertinent family history Social History Smoking Status: Current Some Day Smoker Alcohol Use: occasionally Drug Use: none Marital Status: single Occupation Status: employed Current/Historical Medications Scheduled Albuterol Hfa (Ventolin Hfa), 2-4 PUFFS INH Q6H Ascorbic Acid (Vitamin C), 1 TAB PO DAILY Buspirone Hcl (Buspar), 7.5 MG PO BID Ferrous Sulfate (Iron), 1 TAB PO DAILY Fluoxetine (Prozac), 10 MG PO QAM Fluticasone Propionate (Nasal) (Flonase Allergy Relief Ch), 2 SPRAYS MACY DAILY Scheduled PRN Lorazepam (Ativan), 0.5 MG PO DAILY PRN for Anxiety Allergies Coded Allergies: Penicillins (Verified Allergy, Mild, 10/25/17) Physical Exam Vital Signs Date Time Temp Pulse Resp B/P (MAP) Pulse Ox O2 Delivery O2 Flow Rate FiO2 10/25/17 15:40 75 16 115/76 98 10/25/17 14:47 72 16 125/76 98 Room Air 10/25/17 12:43 69 16 135/74 98 Room Air 10/25/17 10:22 36.5 76 16 145/77 99 Room Air Physical Exam GENERAL: Awake, alert, very anxious appearing, no distress. Flat affect, no hallucinations, no SI or HI at the moment. HENT: Normocephalic, atraumatic. TM's normal. Oropharynx unremarkable. EYES: PERRL. EOMI. Normal conjunctiva. Sclera non-icteric. NECK: Supple. No nuchal rigidity. FROM. No bruit. RESPIRATORY: Breath sounds equal. No wheezes. No rhonchi. CARDIAC: Normal rate. Regular rhythm. No murmurs. No rubs. No JVD. GI: Soft, non distended. No tenderness to palpation. No rebound or guarding. No masses. RECTAL: Deferred. MUSCULOSKELETAL: Unremarkable. No edema. No discoloration. Gross motor strength symmetric. NEURO: Cranial nerves 2-12 grossly intact. Normal sensorium. No sensory or motor deficits noted. Speech normal. No pronator drift. Gait normal. Negative rhomberg. SKIN: No rash or jaundice noted. LYMPH: No adenopathy. Medical Decision & Procedures Laboratory Results 10/25/17 11:57 Red Blood Count 4.92, Mean Corpuscular Volume 89.8, Mean Corpuscular Hemoglobin 32.1, Mean Corpuscular Hemoglobin Concent 35.7, Mean Platelet Volume 9.3, Neutrophils (%) (Auto) 74.3, Lymphocytes (%) (Auto) 19.7, Monocytes (%) (Auto) 5.1, Eosinophils (%) (Auto) 0.3, Basophils (%) (Auto) 0.3, Neutrophils # (Auto) 7.18, Lymphocytes # (Auto) 1.90, Monocytes # (Auto) 0.49, Eosinophils # (Auto) 0.03, Basophils # (Auto) 0.03 10/25/17 11:57 Test 10/25/17 11:04 3/5/18 11:57 Urine Color YELLOW Urine Appearance CLEAR (CLEAR) Urine pH 6.5 (4.5-7.5) Urine Specific [place] 1.012 (1.000-1.030) Urine Protein NEG (NEG) Urine Glucose (UA) NEG (NEG) Urine Ketones 1+ (NEG) Urine Occult Blood NEG (NEG) Urine Nitrite NEG (NEG) Urine Bilirubin NEG (NEG) Urine Urobilinogen NEG (NEG) Urine Leukocyte Esterase NEG (NEG) Urine Opiates Screen NEG (NEG) Urine Methadone, Qualitative NEG (NEG) Urine Barbiturates NEG (NEG) Urine Phencyclidine (PCP) Level NEG (NEG) Ur Amphetamine/Methamphetamine NEG (NEG) MDMA (Ecstasy) Screen NEG (NEG) Urine Benzodiazepines Screen NEG (NEG) Urine Cocaine Metabolite NEG (NEG) Urine Marijuana (THC) NEG (NEG) White Blood Count 9.66 K/uL (4.8-10.8) Red Blood Count 4.92 M/uL (4.2-5.4) Hemoglobin 15.8 g/dL (12.0-16.0) Hematocrit 44.2 % (37-47) Mean Corpuscular Volume 89.8 fL (80-100) Mean Corpuscular Hemoglobin 32.1 pg (25-34) Mean Corpuscular Hemoglobin Concent 35.7 g/dl (32-36) Platelet Count 280 K/uL (130-400) Mean Platelet Volume 9.3 fL (7.4-10.4) Neutrophils (%) (Auto) 74.3 % Lymphocytes (%) (Auto) 19.7 % Monocytes (%) (Auto) 5.1 % Eosinophils (%) (Auto) 0.3 % Basophils (%) (Auto) 0.3 % Neutrophils # (Auto) 7.18 K/uL (1.4-6.5) Lymphocytes # (Auto) 1.90 K/uL (1.2-3.4) Monocytes # (Auto) 0.49 K/uL (0.11-0.59) Eosinophils # (Auto) 0.03 K/uL (0-0.5) Basophils # (Auto) 0.03 K/uL (0-0.2) RDW Standard Deviation 40.1 fL (36.4-46.3) RDW Coefficient of Variation 12.3 % (11.5-14.5) Immature Granulocyte % (Auto) 0.3 % Immature Granulocyte # (Auto) 0.03 K/uL (0.00-0.02) Anion Gap 7.0 mmol/L (3-11) Est Creatinine Clear Calc Drug Dose 91.1 ml/min Estimated GFR () 121.9 Estimated GFR (Non- 105.2 BUN/Creatinine Ratio 11.9 (10-20) Calcium Level 9.0 mg/dl (8.5-10.1) Total Bilirubin 0.4 mg/dl (0.2-1) Direct Bilirubin 0.1 mg/dl (0-0.2) Aspartate Amino Transf (AST/SGOT) 14 U/L (15-37) Alanine Aminotransferase (ALT/SGPT) 18 U/L (12-78) Alkaline Phosphatase 66 U/L (45-117) Total Protein 7.5 gm/dl (6.4-8.2) Albumin 3.7 gm/dl (3.4-5.0) Thyroid Stimulating Hormone (TSH) 1.030 uIu/ml (0.300-4.500) Ethyl Alcohol mg/dL < 3.0 mg/dl (0-3) Laboratory results reviewed by me Medications Administered Medications (Trade) Dose Ordered Sig/Kodi Route Start Time Stop Time Status Last Admin Dose Admin Lorazepam (Ativan Tab) 0.5 mg NOW STAT SL 10/25/17 10:59 10/25/17 11:01 DC 10/25/17 11:41 0.5 MG Lorazepam (Ativan Tab) 1 mg NOW STAT SL 10/25/17 12:36 10/25/17 12:37 DC 10/25/17 12:42 1 MG ED Course 1058: The patient was evaluated in room B8. A complete history and physical exam was performed. 1059: Lorazepam 0.5 mg SL 1230: I checked on the patient at this time. She was still very anxious. 1236: Lorazepam 1 mg SL 1500: I reevaluated the patient at this time. She wants to go to [facility] Medical Decision Triage Nursing notes reviewed. The patient's presentation and history were concerning for anxiety. Etiologies such as mood disorder, toxicologic, infection, hypoglycemia, electrolyte abnormalities, cardiac sources, intracerebral event, neurologic, as well as others were entertained. The patient was evaluated. She was quite distraught from her anxiety. She denies focal suicidal thoughts but is concerned that she is reaching the point. She has been admitted in the past. She feels like she is at that point again. The patient was given a dose of sublingual Ativan. This did not help. She was given a second dose and felt much better. Her laboratory testing was unremarkable. The patient was evaluated by the psychiatric caseworker intake. She felt that inpatient treatment would not be unreasonable and a bed search was performed. The patient was accepted at [facility]. [facility] was [facility]. Medication Reconcilliation Current Medication List: was personally reviewed by me Blood Pressure Screening Patient's blood pressure: Elevated blood pressure Blood pressure disposition: Elevated BP felt to be situational Impression Primary Impression: Mood disorder Scribe Attestation The scribe's documentation has been prepared under my direction and personally reviewed by me in its entirety. I confirm that the note above accurately reflects all work, treatment, procedures, and medical decision making performed by me. Departure Information Dispostion Transfer Acute Care Facility ([facility] Acute Care) Referrals Lucia Alas M.D. (PCP) Patient Instructions My [facility]
== END 2017-10-25 15:41 ==
LOC: EDBD 10:15 → C.EDB 10:16 → C.EDA 15:41
DX: F41.9 Anxiety disorder, unspecified (principal); F39 Unspecified mood [affective] disorder; Z79.899 Other long term (current) drug therapy; Z88.0 Allergy status to penicillin; F17.200 Nicotine dependence, unspecified, uncomplicated

== ENCOUNTER → 2018-01-04 | Outpatient (CLI) | payer OTHER ==
[~2018-01-04] MED LIST changes: +FLUO10CA48 PO
--- NOTE | 2018-01-04 13:43 | DIAGNOSTIC IMAGING REPORT ---
PELVIC ULTRASOUND, TRANSABDOMINAL AND TRANSVAGINAL HISTORY: R10.2 Female pelvic pain [id number] COMPARISON: None. FINDINGS: Uterus: 11.7 x 6.5 x 4.9 cm. There are few small nabothian cysts. Endometrial stripe: 1.1 cm in thickness. There are few echogenic foci within the endometrium which could represent small calcifications. Right ovary: Normal in size and demonstrates normal color flow. Left ovary: Normal in size and demonstrates normal color flow. A 1 cm left ovarian cyst. Miscellaneous:No pelvic free fluid. IMPRESSION: Borderline thickened endometrium containing a few punctate echogenic foci which may represent calcifications. Recommend follow-up pelvic ultrasound in 6-8 weeks to ensure resolution of this finding and to exclude the less likely possibility of an endometrial lesion. Electronically signed by: Alistair Rosales M.D. 01/04/2018 1:42 PM Dictated Date/Time: 01/04/2018 1:38 PM
--- NOTE | 2018-01-04 13:54 | DIAGNOSTIC IMAGING REPORT ---
PELVIC ULTRASOUND, TRANSABDOMINAL IMPRESSION: Please refer to the same day report on the transvaginal pelvic ultrasound Electronically signed by: Alistair Rosales M.D. 01/04/2018 1:52 PM Dictated Date/Time: 01/04/2018 1:51 PM
== END | disposition home or self-care (01) ==
LOC: C.ULTR 11:35
PROVIDERS: ATTEND Internal Medicine
DX: R10.2 Pelvic and perineal pain (principal)

== ENCOUNTER → 2018-04-01 | Outpatient (CLI) | payer OTHER ==
[2018-04-01 17:25] LABS: HEMATOCRIT 43.5 % (37-47); HEMOGLOBIN 14.3 g/dL (12.0-16.0); MEAN CELL VOLUME 94.4 fL (80-100); MEAN CORPUSCULAR HGB CONC 32.9 g/dl (32-36); MEAN PLATELET VOLUME 9.8 fL (7.4-10.4); PLATELET COUNT 274 K/uL (130-400); RED CELL DISTRIBUTION WIDTH CV 13.2 % (11.5-14.5); RED CELL DISTRIBUTION WIDTH SD 45.8 fL (36.4-46.3); WHITE BLOOD COUNT 9.02 K/uL (4.8-10.8)
[2018-04-01 17:55] LABS: ALBUMIN 3.6 gm/dl (3.4-5.0); BLOOD UREA NITROGEN 10 mg/dl (7-18); CALCIUM 8.6 mg/dl (8.5-10.1); CARBON DIOXIDE 29 mmol/L (21-32); CREATININE 0.83 mg/dl (0.60-1.20); GLUCOSE 81 mg/dl (70-99); POTASSIUM 4.3 mmol/L (3.5-5.1); SODIUM 138 mmol/L (136-145); TOTAL PROTEIN 7.5 gm/dl (6.4-8.2)
[2018-04-01 17:56] LABS: ALKALINE PHOSPHATASE 67 U/L (45-117); ALT/SGPT 32 U/L (12-78); AST/SGOT 24 U/L (15-37); CHOLESTEROL 176 mg/dl (0-200); LDL CHOLESTEROL CALCULATED 105 mg/dl
== END | disposition home or self-care (01) ==
LOC: C.LABBFT 11:11
PROVIDERS: ATTEND Internal Medicine
DX: E55.9 Vitamin D deficiency, unspecified (principal)